=== PATIENT | female | born 1995 | race Caucasian/White ===

== ENCOUNTER 2019-11-02 15:45 | Outpatient (CLI) | payer OTHER ==
[2019-11-02 18:39] LABS: BASOPHILS # (AUTO) 0.1 10^3/uL (0.0-0.1); BASOPHILS % (AUTO) 0.8 %; EOSINOPHILS # (AUTO) 0.5 10^3/uL (0.0-0.7); EOSINOPHILS % (AUTO) 6.8 %; HGB - HEMOGLOBIN 13.9 g/dL (12.0-16.0); LYMPHOCYTES # (AUTO) 2.8 10^3/uL (1.5-3.5); LYMPHOCYTES % (AUTO) 38.2 %; MEAN CORPUSCULAR HGB CONC 33.4 g/dL (32.0-36.0); MEAN CORPUSCULAR VOLUME 86.7 fL (81.0-99.0); MEAN PLATELET VOLUME 9.8 fL (7.9-10.8); MONOCYTES # (AUTO) 0.4 10^3/uL (0.0-1.0); MONOCYTES % (AUTO) 5.3 %; NEUTROPHILS # (AUTO) 3.6 10^3/uL (1.5-6.6); NEUTROPHILS % (AUTO) 48.5 %; PLT - PLATELET COUNT 243 10^3/uL (130-450); RED CELL DISTRIBUTION WIDTH 11.8 % (12.0-15.0); WHITE BLOOD COUNT 7.4 x10^3/uL (4.8-10.8)
[2019-11-02 19:06] LABS: ALBUMIN 4.3 g/dL (3.2-5.5); ALBUMIN/GLOBULIN RATIO 1.4 (1.0-2.2); BILIRUBIN,TOTAL 0.4 mg/dL (0.2-1.0); CALCIUM 9.1 mg/dL (8.5-10.3); CREATININE 0.7 mg/dL (0.4-1.0); TOTAL PROTEIN 7.4 g/dL (6.7-8.2)
[2019-11-02 19:07] LABS: HB2 TOTAL 14.2 g/dL; HEMOGLOBIN A1C 0.54 g/dL; HEMOGLOBIN A1C % 5.6 % (4.6-6.2)
[2019-11-02 19:10] LABS: HCG,QUALITATIVE BLOOD NEGATIVE
== END 2019-11-02 23:59 | disposition home or self-care (01) ==
LOC: EDBD → LAB.WCP 15:45
PROVIDERS: ATTEND Nurse Practitioner Family
DX: L83 Acanthosis nigricans (principal); L65.9 Nonscarring hair loss, unspecified; Z68.33 Body mass index [BMI] 33.0-33.9, adult; Z30.9 Encounter for contraceptive management, unspecified
CPT/HCPCS: 36415; 80053; 83036; 84443; 84703; 85025

== ENCOUNTER 2020-12-04 15:21 | Emergency (ER) | payer OTHER ==
[2020-12-04 15:56] LABS: HCG UR QUAL NEGATIVE
--- NOTE | 2020-12-04 15:57 | XRAY Report ---
PROCEDURE: Wrist 4 View RT INDICATIONS: pain for one week. TECHNIQUE: 4 views of the wrist were acquired. COMPARISON: None. FINDINGS: Bones: No acute fractures or dislocations. No suspicious bony lesions. No significant degenerative changes. Scaphoid view: Scaphoid appears intact. Scapholunate interval measures at the upper limits of normal at approximately 3 mm. Soft tissues: No suspicious soft tissue calcifications. IMPRESSION: Right wrist without acute fracture or dislocation. If there is continued clinical concern for pathology or occult fracture, consider follow-up imaging w ith repeat radiographs in 10-14 days followed by possible advanced imaging (CT, MRI, bone scan) if sy mptoms persist. Reviewed by: Nathaniel Seth MD on 12/04/2020 3:56 PM PST Approved by: Nathaniel Seth MD on 12/04/2020 3:56 PM PST Station ID: [id number]
[2020-12-04] MEDS ORDERED: CHERRY SYRUP 10 ML UDC PO ONE (17:08)
[2020-12-04] MEDS ORDERED: DEXAMETHASONE 10 MG/ML VIAL PO STA (17:08)
[2020-12-04] MEDS ORDERED: KETOROLAC 60 MG/2 ML VIAL IM STA (17:09)
--- NOTE | 2020-12-04 17:12 | ED Physician Documentation ---
History of Present Illness - Stated complaint Stated Complaint: RT WRIST PX - Chief complaint Chief Complaint: Ext Problem - History obtained from History obtained from: Patient - History of Present Illness Timing: How many weeks ago (1) - Additonal information Additional information: Previously well 25-year-old female developed some pain in her right wrist about 1 week ago. She states the pain is a sharp in nature and related to movement of her wrist but she does not know of any injury to her wrist at all. She states that the pain is bad enough that if she even touches the pillow or moves the bed sheets at night she has severe pain in her wrist that will wake her up. She has not had resolution of her symptoms and symptoms been present for about 1 week. She does not have much in the way of swelling and she does not have a prior history of gout. Review of Systems Constitutional: denies: Fever Ears: denies: Ear pain Nose: denies: Congestion Respiratory: denies: Cough GI: denies: Vomiting : denies: Dysuria Musculoskeletal: reports: Joint pain. denies: Neck pain, Back pain, Extremity pain Neurologic: denies: Generalized weakness, Focal weakness, Numbness PD PAST MEDICAL HISTORY - Past Medical History Other Past Medical History: wisdom tooth removed. - Past Surgical History Past Surgical History: No - Present Medications Home Medications: Ambulatory Orders Medication Instructions Recorded Confirmed Indomethacin [Indocin] 25 mg PO BIDWM PRN #20 capsule 12/04/20 Naproxen [EC-Naprosyn] 500 mg PO PRN PRN 12/04/20 12/04/20 - Allergies Allergies/Adverse Reactions: Allergies Allergy/AdvReac Type Severity Reaction Status Date / Time No Known Drug Allergies Allergy Verified 12/04/20 15:28 - Social History Does the pt smoke?: No Smoking Status: Never smoker Does the pt drink ETOH?: No Does the pt have substance abuse?: No PD ED PE NORMAL - Vitals Vital signs reviewed: Yes - General General: Alert and oriented X 3, No acute distress, Well developed/nourished - HEENT HEENT: Atraumatic, PERRL, EOMI - Respiratory Respiratory: No respiratory distress - Derm Derm: Normal color, Warm and dry, No rash - Extremities Extremities: No deformity, No edema, Other (There is specific pain elicited by movement of the wrist. Even slight movement will cause pain. There is mild swelling with out erythema or warmth. distal n/v intact. ) - Neuro Neuro: Alert and oriented X 3, director of golf 2-12 intact, No motor deficit, No sensory deficit, Normal speech Eye Opening: Spontaneous Motor: Obeys Commands Verbal: Oriented GCS Score: 15 - Psych Psych: Normal mood, Normal affect Results - Vitals Vitals: Vital Signs - 24 hr 12/04/20 15:24 Temperature 36.0 C L Heart Rate 78 Respiratory 16 Rate Blood Pressure 159/103 H O2 Saturation 98 Oxygen O2 Source Room air - Labs Labs: Laboratory Tests 12/04/20 15:39 Urine HCG, Qual NEGATIVE - Rads (name of study) right wrist Radiology: Prelim report reviewed (Impression: Right wrist without fracture or dislocation.), EMP read indepedently, See rad report PD MEDICAL DECISION MAKING - ED course Complexity details: reviewed results, re-evaluated patient, considered differential, d/w patient ED course: 25-year-old female with sharp pain to the right wrist with movement does not have an injury known to her wrist but she does have pain that is waking her up at night just by touching the bed sheets. I suspect her etiology of her pain is gout and I shared these with the patient. I have come to this conclusion by absence of a traumatic history the exquisite nature of the pain and lack of phy sical findings to suggest an alternative etiology. She is treated here in the emergency department with dexamethasone 10 mg orally 60 mg of Toradol IM and we will write a prescription for some indomethacin. Departure - Departure Disposition: 01 Home, Self Care Clinical Impression: Gout attack Qualifiers: Gout site: wrist Gout etiology: unspecified cause Laterality: right Qualified Code(s): M10.9 - Gout, unspecified Condition: Stable Instructions: ED Arthritis Gout, ED Diet Gout Follow-Up: MILLY MAURER, MSN, [facility] [Primary Care Provider] - Prescriptions: Indomethacin [Indocin] 25 mg PO BIDWM PRN #20 capsule PRN Reason: Pain
[2020-12-04 17:27] VITALS: BP 162/104
== END 2020-12-04 17:45 | disposition home or self-care (01) ==
LOC: ED 15:21
DX: M10.9 Gout, unspecified (principal)
CPT/HCPCS: 73110; 81025; 96372; 99284; A9270

== ENCOUNTER 2021-07-25 13:54 | Outpatient (CLI) | payer OTHER | END 2021-07-25 23:59 | disposition home or self-care (01) | LOC: LAB.N 13:54 | PROVIDERS: ATTEND Family Medicine | DX: R05 Cough (principal); Z20.822 Contact with and (suspected) exposure to COVID-19 ==

== ENCOUNTER 2021-11-24 08:00 | Outpatient (CLI) | payer OTHER | END 2021-11-24 23:59 | LOC: LAB.N 08:00 | PROVIDERS: ATTEND Family Medicine | DX: U07.1 COVID-19 (principal) ==

== ENCOUNTER 2022-01-02 10:06 | Outpatient (CLI) | payer OTHER ==
[2022-01-02 14:00] LABS: BASOPHILS # (AUTO) 0.1 10^3/uL (0.0-0.1); EOSINOPHILS # (AUTO) 0.3 10^3/uL (0.0-0.7); EOSINOPHILS % (AUTO) 4.4 %; HCT - HEMATOCRIT 42.9 % (37.0-47.0); HGB - HEMOGLOBIN 14.7 g/dL (12.0-16.0); LYMPHOCYTES # (AUTO) 2.4 10^3/uL (1.5-3.5); LYMPHOCYTES % (AUTO) 33.3 %; MEAN CORPUSCULAR HEMOGLOBIN 30.1 pg (27.0-31.0); MEAN CORPUSCULAR HGB CONC 34.3 g/dL (32.0-36.0); MEAN CORPUSCULAR VOLUME 87.9 fL (81.0-99.0); MEAN PLATELET VOLUME 9.9 fL (7.9-10.8); MONOCYTES # (AUTO) 0.5 10^3/uL (0.0-1.0); MONOCYTES % (AUTO) 6.9 %; NEUTROPHILS # (AUTO) 3.9 10^3/uL (1.5-6.6); NEUTROPHILS % (AUTO) 54.1 %; PLT - PLATELET COUNT 281 10^3/uL (130-450); RED BLOOD COUNT 4.88 10^6/uL (4.20-5.40); RED CELL DISTRIBUTION WIDTH 12.1 % (12.0-15.0); WHITE BLOOD COUNT 7.3 x10^3/uL (4.8-10.8)
[2022-01-02 14:16] LABS: ESTIMATED AVERAGE GLUCOSE 111 mg/dL (70-100); HEMOGLOBIN A1c% 5.5 % (4.27-6.07)
[2022-01-02 14:18] LABS: ALBUMIN 4.5 g/dL (3.2-5.5); ALBUMIN/GLOBULIN RATIO 1.2 (1.0-2.2); ALKALINE PHOSPHATASE 52 IU/L (42-121); ALT ALANINE AMINOTRANSFERASE 27 IU/L (10-60); AST ASPARTATE AMINOTRANSFERASE 22 IU/L (10-42); BUN - BLOOD UREA NITROGEN 19 mg/dL (6-20); CALCIUM 9.8 mg/dL (8.5-10.3); CARBON DIOXIDE - CO2 30 mmol/L (21-32); CHLORIDE 99 mmol/L (101-111); CHOL/HDL RATIO 5.3 (<4.4); CHOLESTEROL 232 mg/dL; CREATININE 0.9 mg/dL (0.4-1.0); GFR - MDRD 75 (>89); GLUCOSE 98 mg/dL (70-100); HDL CHOLESTEROL 44 mg/dL; LDL CHOLESTEROL,CALCULATED 150 mg/dL; LDL/HDL RATIO 3.4 (<4.4); POTASSIUM 3.3 mmol/L (3.5-5.0); SODIUM 140 mmol/L (135-145); TOTAL PROTEIN 8.3 g/dL (6.7-8.2); TRIGLYCERIDES 188 mg/dL; VLDL CHOLESTEROL 38 mg/dL
[2022-01-02 14:26] LABS: THYROID STIMULATING HORMONE 1.76 uIU/mL (0.34-5.60)
== END 2022-01-02 10:07 | disposition home or self-care (01) ==
LOC: LAB.N 10:06
PROVIDERS: ATTEND Physician Assistant
DX: Z13.1 Encounter for screening for diabetes mellitus (principal); Z13.9 Encounter for screening, unspecified; Z13.220 Encounter for screening for lipoid disorders; Z13.29 Encounter for screening for other suspected endocrine disorder
CPT/HCPCS: 36415; 80053; 80061; 83036; 83721; 84443; 85025

== ENCOUNTER 2022-02-04 13:40 | Outpatient (CLI) | payer OTHER | END 2022-02-04 13:41 | disposition home or self-care (01) | LOC: NS 13:40 | PROVIDERS: ATTEND Physician Assistant | DX: Z71.3 Dietary counseling and surveillance (principal); Z68.33 Body mass index [BMI] 33.0-33.9, adult | CPT/HCPCS: 97802 ==

== ENCOUNTER 2022-07-09 14:46 | Outpatient (CLI) | payer OTHER ==
[2022-07-10 05:10] LABS: RPR Non Reactive (Non Reactive)
[2022-07-10 07:08] LABS: HIV SCREEN 4TH GENERATION Non Reactive (Non Reactive)
== END 2022-07-09 14:47 | disposition home or self-care (01) ==
LOC: LAB.N 14:46
PROVIDERS: ATTEND Physician Assistant
DX: Z11.3 Encounter for screening for infections with a predominantly sexual mode of transmission (principal)
CPT/HCPCS: 36415; 81599; 86592; 86694; 86695; 86696; 87389